=== PATIENT | female | born 1970 ===

== ENCOUNTER 2024-10-30 07:06 | Day surgery (SDC) | payer OTHER ==
[2024-10-24 10:14] LABS: BASO % 0.8 % (0.1-1.2); EOS # 0.01 (0.04-0.54); EOS % 0.2 % (0.7-7.0); LYMPH # 1.82 (1.18-3.74); LYMPH % 29.2 % (19.3-53.1); MEAN PLATELET VOLUME 10.80 fl (9.4-12.4); MONO # 0.54 (0.24-0.82); MONO % 8.7 % (4.7-12.5); NEUT # 3.81 (1.56-6.13); NEUT % 60.9 % (34.0-71.1); RED CELL DISTRIBUTION WIDTH 13.0 % (11.6-14.4)
[2024-10-24 10:17] LABS: URINE APPEARANCE Clear; URINE BILIRRUBIN Negative (NEGATIVE); URINE BLOOD Negative; URINE COLOR Yellow; URINE GLUCOSE Negative (NEGATIVE); URINE KETONE Negative (NEGATIVE); URINE LEUKOCYTE Moderate; URINE NITRATE Positive; URINE PROTEIN Negative (NEGATIVE); URINE UROBILINOGEN 0.2 E.U./dl
[2024-10-24 10:21] LABS: URINE EPITHELIAL CELLS 31.5 uL (0.0-38.8); URINE RBC 2.0 uL (0.0-20.8); URINE WBC 116.4 uL (0.0-23.2)
[2024-10-24 10:37] LABS: INR 1.01
[2024-10-24 10:59] LABS: URINE BACTERIA > 9821.5 uL (0.0-1933); URINE CAST 1.02 uL (0.0-1.40)
[2024-10-24 11:06] LABS: ALT/SGPT 21.0 U/L (12-78); AST/SGOT 23.0 U/L (15-37); BILIRUBIN TOTAL 0.35 mg/dL (0.3-1.2); BUN CREA RATIO 17.0 (7.0-25.0); CREATININE SERUM 1.71 mg/dL (0.55-1.02); GFR 31.47; GLOBULINA 3.9 G/DL (2.4-3.5); OSMOLALITY SERUM 299.0 MOSM/KG (275-295)
[2024-10-24 11:11] LABS: GLUCOSE FASTING 210.0 mg/dL (65-100)
[2024-10-24 11:42] VITALS: BP 130/70
[~2024-10-30] VITALS: Ht 172.7 cm; Wt 87.5 kg
[~2024-10-30 07:06] MED LIST: AVAPRO300 MG PO; EZALLOR SPRINKL20 MG PO; HUMALOG100 UNIT/2; LASIX20 MG PO; OMEGA-31000 MG PO; REPATHA SU140 MG/1 M SQ; SENSIPAR30 MG PO; SINGULAIR10 MG PO; SYMBICORT 16010.2 GM IH; TOPROL XL100 M1 PO; ZYRTEC10 M3 PO
[2024-10-30] MEDS ORDERED: CEFAZOLIN SODIUM 1,000 MG VIAL IV ONE (10:00)
[2024-10-30] MEDS ORDERED: CEFAZOLIN SODIUM 1,000 MG VIAL ONE (10:18)
[2024-10-30] MEDS ORDERED: DEXAMETHASONE SODIUM PHOSPHATE 4 MG/ML VIAL ONE (12:16)
[2024-10-30] MEDS ORDERED: ENALAPRILAT DIHYDRATE 1.25 MG/ML VIAL IV ONE (12:34)
[2024-10-30] MEDS ORDERED: hydrALAZINE HCL 20 MG VIAL ONE (13:05)
[2024-10-30] MEDS ORDERED: DEXTROSE 50 % IN WATER 0.5 G/ML VIAL IV PRN (15:15)
[2024-10-30] MEDS ORDERED: INSULIN LISPRO 1,000 UNIT/10 ML UNITS SUBCUTANEO PRN (15:15)
== END 2024-10-30 17:50 | disposition home or self-care (01) ==
LOC: O/R 07:06 → CIR.AMB 07:06 → SURH 07:06 → EDSTATUS 08:30 → SURH 08:30 → CIR.AMB 17:50 → O/R 17:50
PROVIDERS: ATTEND Surgery
DX: D35.1 Benign neoplasm of parathyroid gland (principal); E21.0 Primary hyperparathyroidism